=== PATIENT | male | born 1985 | race Caucasian/White ===

== ENCOUNTER 2016-12-02 16:27 | Emergency (ER) | payer OTHER ==
[2016-12-02 16:31] VITALS: TEMP 98.4
--- NOTE | 2016-12-02 17:21 | EDPHY ---
H & P Time Seen by Provider: 12/02/16 17:18 HPI/ROS: CHIEF COMPLAINT: Chest pain, shortness of breath. HISTORY OF PRESENT ILLNESS: This is a 31-year-old male with PTSD presenting with palpitations and shortness of breath. In July he first noticed intermittent spells of room-spinning dizziness when he moved his head to the side. He would then feel short of breath with chest pain and the feeling of dread/anxiety. In the past month these episodes began to get more frequent. They occur without obvious cause or aggravating factors. Within the past 2 weeks he has also developed intermittent central chest pressure that has become constant in the past 2 days. The chest pain travels up and down his chest. He denies alleviating or provoking factors but does not notice the sx when he is distracted. He also admits intermittent posterior head "pressure" and intermittent numbness in his left upper extremity. The numbness is migratory and not usually in the same place. He denies headache, abdominal pain, vomiting , diarrhea, or other complaints. He does feel that he has been under more stress lately. He admits having a family cardiac history and he is a smoker. He is worried about having a CVA or heart attack. REVIEW OF SYSTEMS: A complete 10-point review of systems was performed and is negative except for those items mentioned in the HPI. Past Medical/Surgical History: PTSD, Dengue Fever. Social History: Smoker, here with family. Smoking Status: Current every day smoker Physical Exam: General Appearance: Alert, anxious Eyes: Pupils equal and round, no conjunctival pallor or injection ENT, Mouth: Mucous membranes moist Neck: Normal inspection Respiratory: Lungs are clear to auscultation Cardiovascular: Regular rate and rhythm Gastrointestinal: Abdomen is soft and non-tender Neurological: Alert, oriented x3, cranial nerves II through XII intact, motor 5 /5, sensory intact to light touch, normal gait Skin: Warm and dry, no rash Extremities: Nontender, no pedal edema Psychiatric: anxious Constitutional: Initial Vital Signs Temperature (C) 36.9 C 12/02/16 16:28 Heart Rate 64 12/02/16 16:28 Respiratory Rate 16 12/02/16 16:28 Blood Pressure 137/92 H 12/02/16 16:28 O2 Sat (%) 98 12/02/16 16:28 O2 Delivery Mode Room Air Allergies/Adverse Reactions: No Known Allergies Allergy (Unverified 12/02/16 16:31) Medical Decision Making - Diagnostics EKG Interpretation: EKG interpreted by me reveals normal sinus rhythm, normal axis, normal intervals , ST and T segments normal. Interpretation: normal EKG Imaging: Chest x-ray reviewed by me reveals no acute cardiopulmonary disease. ED Course/Re-evaluation: This patient presents with a multitude symptoms and is concerned that he may be having a heart attack or stroke. He has no risk factors for vascular disease and I do not suspect these diagnoses. Physical exam is normal, including the neurologic exam. An IV was established and labs ordered. Chest x-ray, EKG ordered. Results d/w pt, no evidence of serious etiology of sx. Encouraged to f /u PCP and with psychiatrist. Differential Diagnosis: includes though not limited to ACS, pneumonia, PTX, CVA, PE. - Data Points Laboratory Results: Laboratory Results 12/02/16 17:50 12/02/16 17:50 Departure - Departure Disposition: Home, Routine, Self-Care Clinical Impression: Anxiety Chest pain Qualifiers: Qualifier Code: (R07.9) Chest pain, unspecified Condition: Good Instructions: Chest Pain (ED), Anxiety (ED) Additional Instructions: Follow up with your psychiatrist or primary care provider next week for reevaluation. If you need a primary care provider you have been given the telephone number of Dr. Cerrato, outpatient medicine. Return to the emergency department for any serious worsening of condition. Referrals: Krystal Cerrato MD [Medical Doctor] - As per Instructions Report Scribed for: Vanessa Frausto Report Scribed by: Rome Mixon Date of Report: 12/02/16 Time of Report: 17:19 Physician Review and Approval Statement: 12/02/16 17:19 Portions of this note were transcribed by a medical terminologist. I personally performed a history, physical exam, medical decision making, and confirmed accuracy of information the transcribed note.
--- NOTE | 2016-12-02 17:56 | CPEKG ---
Heart Rate: 57 RR Interval: 1053 P-R Interval: 160 QRSD Interval: 88 QT Interval: 388 QTC Interval: 378 P El[place]: 64 QRS Elgin: -9 T Wave El[place]: 34 EKG Severity - NORMAL ECG - EKG Impression: SINUS RHYTHM Electronically Signed By: Vanessa Frausto 02-Dec-2016 23:33:48
[2016-12-02 17:58] LABS: % IMMATURE GRANULYOCYTES 0.3 % (0.0-1.1); ABSOLUTE IMMATURE GRANULOCYTES 0.03 10^3/uL (0.00-0.10); ADD DIFF? NO; ADD MORPH? NO; ADD SCAN? NO; ATYPICAL LYMPHOCYTE FLAG 10 (0-99); FRAGMENT RBC FLAG 0 (0-99); HEMATOCRIT 47.7 % (40.0-51.0); HEMOGLOBIN 16.6 g/dL (13.7-17.5); LEFT SHIFT FLG 0 (0-99); LIPEMIA HEMOLYSIS FLAG 90 (0-99); MEAN CELL HEMOGLOBIN 30.9 pg (27.9-34.1); MEAN CELL HEMOGLOBIN CONCENTR. 34.8 g/dL (32.4-36.7); MEAN CELL VOLUME 88.7 fL (81.5-99.8); MEAN PLATELET VOLUME 9.7 fL (8.7-11.7); PLATELET CLUMPS FLAG 20 (0-99); PLATELET COUNT 199 10^3/uL (150-400); RED BLOOD CELL COUNT 5.38 10^6/uL (4.40-6.38); RED CELL DISTRIBUTION WIDTH 12.2 % (11.5-15.2)
[2016-12-02 18:12] LABS: ANION GAP 14 mEq/L (8-16); CALCIUM 9.4 mg/dL (8.5-10.4); CARBON DIOXIDE 26 mEq/l (22-31); CHLORIDE 103 mEq/L (97-110); CREATININE 0.8 mg/dL (0.7-1.3); GLOMERULAR FILTRATION RATE > 60; GLUCOSE 93 mg/dL (70-100); POTASSIUM 4.2 mEq/L (3.5-5.2); SODIUM 143 mEq/L (134-144)
[2016-12-02 18:23] LABS: TROPONIN I < 0.012 ng/mL (0-0.034)
[2016-12-02 18:44] VITALS: BP 131/88; PULSE 68; RESP 18; O2SAT 96
--- NOTE | 2016-12-02 18:52 | DX ---
PA and Lateral Chest History: Chest pain, left arm pain and intermittent dizziness in a 31-year-old male; no prior studies available for comparison. Findings: The heart and mediastinum are normal. Pulmonary vascularity is normal. The lungs are clear. There is no pleural fluid. A pneumothorax is not identified. Impression: Normal chest negative for acute abnormality.
== END 2016-12-02 18:44 | disposition home or self-care (01) ==
DX: R07.9 Chest pain, unspecified (principal); F41.9 Anxiety disorder, unspecified; F17.200 Nicotine dependence, unspecified, uncomplicated